=== PATIENT | female | born 2000 | race Caucasian/White ===

== ENCOUNTER 2020-10-11 22:29 | Emergency (ER) | payer OTHER ==
[~2020-10-11] VITALS: Ht 160 cm; Wt 95.3 kg
[2020-10-12 00:26] LABS: INFLUENZA A ANTIGEN Negative (Negative); INFLUENZA B ANTIGEN Negative (Negative)
[2020-10-12] MEDS ORDERED: ACETAMINOPHEN-1 EAC2 PO (01:14)
[2020-10-12] MEDS ORDERED: ZOFRAN ODT4 MG PO (01:14)
[2020-10-12 01:24] VITALS: BP 138/75
== END 2020-10-12 01:26 | disposition home or self-care (01) ==
LOC: M.ERS 22:29
PROVIDERS: Personal Emergency Response Attendant
DX: R51.9 Headache, unspecified (principal); R11.2 Nausea with vomiting, unspecified; Z88.0 Allergy status to penicillin; Z91.030 Bee allergy status; Z87.01 Personal history of pneumonia (recurrent)